=== PATIENT | female | born 1960 | race Hispanic/Latino ===

== ENCOUNTER 2017-08-27 08:57 | Emergency (ER) | payer SELFPAY ==
--- NOTE | 2017-08-27 09:57 | CT ---
NONCONTRAST CT HEAD: Date: 08/27/17 HISTORY: Headache. COMPARISON: 05/11/03. FINDINGS: There is no evidence of a hemorrhage, acute infarction, mass effect, or midline shift. Ventricular sy stem is normal in size, shape, and position. Colby cisterna magna is incidentally noted, which is a st able finding. Calvarial structures are intact. Visualized paranasal sinuses and mastoid air cells are clear. There has been no interval change from the prior exam. IMPRESSION: No acute intracranial abnormality demonstrated. POS: JOHNH
[2017-08-27] MEDS ORDERED: Acetaminophen 500 MG TAB ONE (10:05)
== END 2017-08-27 10:36 | disposition home or self-care (01) ==
LOC: ERS 08:57
DX: J32.9 Chronic sinusitis, unspecified (principal); E78.5 Hyperlipidemia, unspecified; I10 Essential (primary) hypertension; Z79.899 Other long term (current) drug therapy
CPT/HCPCS: 70450

== ENCOUNTER 2017-12-04 12:57 | Outpatient (CLI) | payer SELFPAY ==
--- NOTE | 2017-12-12 10:23 | MMO ---
BILATERAL SCREENING MAMMOGRAM: Date: 12/04/17 COMPARISON: 05/08/15 and 04/28/14. HISTORY: Screening mammography. FINDINGS: This patient's mammogram was interpreted with the assistance of computer-aided detection. There are scattered fibroglandular densities present. There is no dominant mass or architectural dist ortion. No concerning microcalcifications. IMPRESSION: BIRADS 1: Negative Annual screening mammography recommended. POS: JACQUELINE
== END 2017-12-04 12:58 | disposition home or self-care (01) ==
LOC: SCSMAMMO 12:57
PROVIDERS: ATTEND Family Medicine
DX: Z12.31 Encounter for screening mammogram for malignant neoplasm of breast (principal)
CPT/HCPCS: 77067

== ENCOUNTER 2025-06-26 14:51 | Emergency (ER) | payer SELFPAY ==
[2025-06-26 15:49] LABS: #Basophils 0.03 10x3/uL (0.0-0.2); #Eosinophils 0.07 10x3/uL (0.0-0.7); #Monocytes 0.41 10x3/uL (0.11-0.59); #Neutrophils 2.82 10x3/uL (1.40-6.50); %Basophils 0.5 % (0.0-1.0); %Eosinophils 1.2 % (0.0-10.0); %Lymphocytes 44.4 % (21.0-51.0); %Monocytes 6.8 % (0.0-10.0); %Neutrophils 46.9 % (42.0-75.0); Hematocrit 41.6 % (36.0-47.0); Hemoglobin 13.5 g/dL (12.0-16.0); Mean Corpuscular Hemoglobin 27.3 pg (27.0-31.0); Mean Corpuscular Volume 84.0 fL (78.0-98.0); Platelet Count 246 10x3/uL (130-400); Red Blood Cell (RBC) Count 4.95 mill/uL (4.20-5.40); White Blood Cell (WBC) Count 6.01 10x3/uL (4.8-10.8)
[2025-06-26 16:23] LABS: Lipase 20 U/L (8-78); Magnesium 2.2 mg/dL (1.6-2.6)
[2025-06-26 16:24] LABS: ALT (SGPT) 12 U/L (Less than 34); AST (SGOT) 21 U/L (11-34); Albumin 4.4 g/dL (3.1-4.5); Alkaline Phosphatase 107 U/L (40-110); Anion Gap 8 mmol/L (10-20); BUN (Urea Nitrogen) 12 mg/dL (9.8-20.1); Bilirubin, Total 0.4 mg/dL (0.3-1.2); Calc. Creatinine Clearance 0 mL/min (70-130); Calcium 9.4 mg/dL (7.8-10.44); Carbon Dioxide 29 mmol/L (23-31); Chloride 102 mmol/L (98-107); Globulin 2.8 g/dL (2.4-3.5); Glucose 133 mg/dL (80-115); Potassium 3.0 mmol/L (3.5-5.1); Sodium 136 mmol/L (136-145)
[2025-06-26 18:49] LABS: Bacteria/HPF None Seen HPF (None Seen); CAUTI Indications for Culture Dysuria,urgency,freq; Glucose, Urine (Dipstick) Normal (Negative); Leukocyte Negative Leu/uL (Negative); Protein, Urine (Dipstick) Negative (Neg-Trace); RBC/HPF 0-3 HPF (0-3); Specific Gravity, Urine 1.015 (1.002-1.036); WBC/HPF 0-3 HPF (0-3)
[2025-06-26 19:03] LABS: Urine Culture Reflex No No
== END 2025-06-26 19:25 | disposition home or self-care (01) ==
LOC: ERS 14:51
DX: R10.11 Right upper quadrant pain (principal); E87.6 Hypokalemia; I10 Essential (primary) hypertension; E78.00 Pure hypercholesterolemia, unspecified; Z79.899 Other long term (current) drug therapy
CPT/HCPCS: 36415; 74177; 76705; 80053; 81001; 83605; 83690; 83735; 84484; 85025; 93005; 96374; J2270